=== PATIENT | female | born 1965 | race Two or more races ===

== ENCOUNTER 2023-04-26 03:06 | Emergency (ER) | payer OTHER ==
[~2023-04-26] VITALS: Ht 154.9 cm; Wt 69.4 kg
[2023-04-26] MEDS ORDERED: ZITHROMAX500 MG (03:36)
[2023-04-26 06:24] LABS: HEMATOCRIT 35.8 % (36.0-45.00); HEMOGLOBIN 12.3 g/dL (12.0-15.00); MEAN CELL VOLUME 90.4 fL (80.00-100.00); MEAN CORPUSCULAR HEMOGLOBIN 31.2 pg (27.00-32.0); MEAN CORPUSCULAR HGB CONC 34.5 g/dl (32.0-36.0); PLATELET COUNT 206 K/uL (150-450); RED BLOOD COUNT 3.96 M/uL (4.00-6.00); RED CELL DISTRIBUTION WIDTH 13.5 % (11.5-14.5)
[2023-04-26 07:24] LABS: INR 1.02; PARTIAL THROMBOPLASTIN TIME 31.1 SECONDS (22.0-34.0); PROTHROMBIN TIME 10.7 SECONDS (9.0-11.5)
[2023-04-26 10:25] LABS: ANION GAP 5 (10.0-20.0); BLOOD UREA NITROGEN 11 mg/dL (7-18); BUN CREA RATIO 20 (7.0-25.0); CALCIUM 8.6 mg/dL (8.5-10.1); CARBON DIOXIDE 30 mEq/L (21-32); CHLORIDE 108 mmol/L (98-107); CREATININE SERUM 0.55 mg/dL (0.55-1.02); GFR 113.52; GLUCOSE FASTING 91 mg/dL (65-100); OSMOLALITY SERUM 277 MOSM/KG (275-295); POTASSIUM 4.13 mEq/L (3.5-5.1); SODIUM 139 mmol/L (136-145)
[2023-04-26 10:40] LABS: HCG QUANTITATIVE < 1 mUI/mL (1-3)
== END 2023-04-26 12:01 | disposition home or self-care (01) ==
LOC: ER 03:06
PROVIDERS: General Practice
DX: N93.9 Abnormal uterine and vaginal bleeding, unspecified (principal); Z88.6 Allergy status to analgesic agent; Z88.8 Allergy status to other drugs, medicaments and biological substances

== ENCOUNTER 2023-06-21 04:19 | Day surgery (SDC) | payer OTHER ==
[~2023-06-21 04:19] MED LIST: ZITHROMAX500 MG
[2023-06-21] MEDS ORDERED: PERCOCET 5-3251 EACH PO (12:12)
== END 2023-06-21 15:05 | disposition home or self-care (01) ==
LOC: CIR.AMB 04:19
PROVIDERS: ATTEND Obstetrics & Gynecology Gynecology
DX: N83.291 Other ovarian cyst, right side (principal); N83.8 Other noninflammatory disorders of ovary, fallopian tube and broad ligament; N95.0 Postmenopausal bleeding; Z88.6 Allergy status to analgesic agent; Z88.1 Allergy status to other antibiotic agents; Z20.822 Contact with and (suspected) exposure to COVID-19; N93.9 Abnormal uterine and vaginal bleeding, unspecified